=== PATIENT | female | born 1970 | race Caucasian/White ===

== ENCOUNTER → 2017-03-19 | Outpatient (CLI) | payer BC ==
[~2017-03-19] MED LIST: 8 HOUR PAIN RE650 MG PO; 8 HOUR650 MG PO; ASPIR 8181 MG PO; ASPIRIN (CHILDR81 MG; BRILINTA90 MG PO; CELEBREX200 MG PO; CO Q-10100 MG PO; CUBICIN (NON-F500 MG IV; DESYREL100 MG PO; DIFLUCAN150 MG PO; DILAUDID 2MG(HYD2 MG PO; FISH OIL 1,2001 EACH PO; FISH OIL1000 MG PO; GLUCOPHAGE500 MG; IBUPROFEN800 MG; LAMICTAL200 MG PO; LASIX20 MG PO; LATUDA60 MG PO; LIPITOR80 MG PO; LISINOPRIL10 MG PO; LOPRESSOR25 MG PO; LYRICA 75MG CAP75 MG PO; NITROSTAT0.4 MG SL; OSCAL + D500 MG PO; PAIN & FEVER500 MG PO; PHENERGAN25 MG/1 M1 IM; PROTONIX40 MG PO; RANEXA1000 MG PO; TOPAMAX100 MG PO; TRAMADOL HCL50 MG PO; VICTOZA 2-0.6 MG/0.1; VITAMIN D35000 UNI1 PO; VITAMIN D5000 UNIT PO; XARELTO10 MG PO; ZYRTEC10 M3 PO; [UNRECOGNIZED DRUG - OTHER] PO
--- NOTE | ~2017-03-19 | PUL ---
PATIENT'S NAME: TIFFANIE MAYEN [facility] AGE: 46 Y [address] ROOM: [place] [address] LOCATION: [facility] ADMIT DATE: 03/19/2017 Pulmonary DISCHARGE DATE: FAMILY PHYSICIAN: Ryley Baxter MD ATTENDING PHYSICIAN: Ryley Baxter NAME OF PROCEDURE: Sleep study PROCEDURE DATE: 03/19/2017 TECH: PAUL Valerio TEST #: [facility]# [id number] TECHNICAL PARAMETERS: The patient was studied using International 10/20 measuring system. While the patient was studied, there was continuous monitoring of EEG (8 leads), EOG (2 leads), EKG (3 leads), submental EMG (3 leads), tibial (4 leads), respiratory inductive plethysmography (RIP) for thoracic and abdominal effort, oral and nasal airflow with a thermocouple and pressure transducer, and oximetry. The emergency technician also performed visual and auditory observations noting things like body position, patient's status, breath sounds, artifact, snoring level and patient comments. Continuous sound was monitored using a 2-way speaker system and video monitoring was performed using an infrared camera. Review of the entire study was performed epoch by epoch utilizing a single epoch and multiple epoch capability sleep system. MEDICAL HISTORY: Patient is a 46-year-old overweight woman with daytime sleepiness, snoring and a prior history of obstructive sleep apnea. SLEEP STAGE SUMMARY: This study was done to titrate CPAP. The patient was studied for 513 minutes of which she slept 482 minutes. She fell asleep in 8 minutes and slept for 94% of the night. RESPIRATORY SUMMARY: CPAP was initiated at 6 cm and titrated to 12 cm with good control of the respiratory events. EKG SUMMARY: Average heart rate 76 beats per minute. LIMB MOVEMENT SUMMARY: No clinically relevant periodic limb movements were noted. SUMMARY: Obstructive sleep apnea responsive to CPAP at 12 cm. PLAN: Suggest CPAP at 12 cm. Patient will receive results from the ordering provider. PATIENT'S NAME: TIFFANIE MAYEN [facility] AGE: 46 Y [address] ROOM: [place] [address] LOCATION: [facility] ADMIT DATE: 03/19/2017 Pulmonary DISCHARGE DATE: FAMILY PHYSICIAN: Ryley Baxter MD ATTENDING PHYSICIAN: Ryley Baxter MD Blaise GARRETT /[id number] dtt: 04/06/17 1301 , Gunner Ramsey dtd: 03/22/17 1159
== END | disposition disaster alternative care site (69) ==
LOC: GSLP 20:20
DX: G47.33 Obstructive sleep apnea (adult) (pediatric) (principal)